=== PATIENT | female | born 1940 ===

== ENCOUNTER → 2021-06-04 | Outpatient (CLI) | payer SELFPAY | END | disposition home or self-care (01) | LOC: LAB SHORT 14:51 | DX: L82.1 Other seborrheic keratosis (principal) | CPT/HCPCS: 88305 ==

== ENCOUNTER → 2022-06-04 | Outpatient (CLI) | payer MEDICARE, OTHER | LOC: LAB SHORT 15:05 → PLD 15:05 → LAB 15:05 | DX: L57.0 Actinic keratosis (principal); L81.4 Other melanin hyperpigmentation; R23.4 Changes in skin texture | CPT/HCPCS: 88305 ==

== ENCOUNTER → 2022-09-30 | Outpatient (CLI) | payer MEDICARE, OTHER | LOC: LAB 10:37 → LAB SHORT 10:37 → PLD 10:37 | DX: D48.5 Neoplasm of uncertain behavior of skin (principal) | CPT/HCPCS: 88305 ==